=== PATIENT | male | born 1960 | race Caucasian/White ===

== ENCOUNTER → 2017-07-07 | Outpatient (CLI) | payer OTHER ==
[~2017-07-07] MED LIST: METFORMIN500 MG PO; METHOCARBAMOL500 M1 PO; OXYCODONE-ACETA1 TAB PO; SIMVASTATIN40 MG PO
--- NOTE | 2017-07-07 22:20 | RADIOLOGY REPORT PS360 ---
CT SINUS (MAX-FACIAL W/O CONT) HISTORY: CHRONIC SINUSITIS,DIZZINESS Patient Age: 56 years: Male Ordering Physician: Tim Garduno MD TECHNIQUE: Helical CT scanning performed to the paranasal sinuses with sagittal and coronal reconstructions on CT workstation COMPARISON :Previous CT sinuses from 07/20/2012 FINDINGS Maxillary sinuses. Mild diffuse mucosal thickening right maxillary sinus and left. Slightly more pronounced bilaterally than it was on 2012.. The ostiomeatal unit and pathway appear patent bilaterally with some minor mucosal thickening along their course. No air-fluid levels at maxillary sinuses. Ethmoid air cells.. Progression of now prominent inflammatory changes on right greater than left at ethmoid air cell. Findings here progressed previous 2012 study. Opacification of many of the right ethmoid air cells and to lesser degree left ethmoid air cells. Mucosal thickening throughout. There is mild mucosal thickening extending into the inferior frontal sinuses and left inferior frontal sinus. This is similar to previous 2012 study. Frontal sinuses. Sphenoid sinuses. Only Scant mucosal thickening inferior right and left sphenoid sinus. Barely appreciable The mastoid air cells appear well the lower where already clear. Middle ear clear. IACs unremarkable. Limited only images of brain unremarkable on today's study Nasal septum of with only subtle slight deviation convexity to the right at the mid, posterior septum as seen on coronal image 35,. 203 . Nasal turbinates appear satisfactory. Orbits unremarkable sella normal size. IMPRESSION: .... Prominent ethmoid sinusitis bilaterally right greater than left. This is progressed since 2012. Mild diffuse mucosal thickening at maxillary sinuses has shown slight progression since 2012. No air-fluid levels here. Scant barely evident mucosal thickening inferior frontal and sphenoid sinuses stable. & Barely appreciable changes here
== END ==
LOC: RAD 14:44
DX: J32.9 Chronic sinusitis, unspecified (principal); R42 Dizziness and giddiness

== ENCOUNTER → 2017-10-08 | Outpatient (CLI) | payer OTHER | LOC: RT 09:41 | DX: R00.2 Palpitations (principal); R42 Dizziness and giddiness ==